=== PATIENT | female | born 1955 | race Caucasian/White ===

== ENCOUNTER 2017-10-16 09:05 | Emergency (ER) | payer OTHER ==
[~2017-10-16] VITALS: Ht 170.2 cm; Wt 113.4 kg
--- NOTE | ~2017-10-16 | EKG ---
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1955 Requested By: Suleman Pickard Order Number: [id number] MD: Neel Modi Measurements Intervals [place] Rate: 70 P: 7 MO: 211 QRS: -54 QRSD: 113 T: 4 QT: 425 QTc: 459 Interpretive Statements Sinus rhythm Prolonged MO interval Left anterior fascicular block Poor R wave progression Compared to ECG 04/22/2013 13:20:26 First degree AV block now present Electronically Signed On 10-16-2017 14:45:47 CDT by Neel Modi [email or web address] <ELECTRONICALLY SIGNED> By: Neel Modi MD, [facility] 10/16/17 1445 [id number] Neel Modi MD, [facility] /EPI
[~2017-10-16 09:05] MED LIST: CARBAMAZEPINE200 M2 PO; CLONAZEPAM 0.50.5 M1 PO; IBUPROFEN 800800 M1 PO; LAMOTRIGINE100 MG PO; MECLIZINE HCL25 M1 PO; NAPROSYN500 MG PO; ONDANSETRON HCL4 M2 PO; PAIN CREAM; PERCOCET 5-3251 EACH PO; SINGULAIR 10 MG10 M1; TEGRETOL XR200 MG PO; TRAMADOL 50 MG50 MG PO; TRIAMTERENE-HC1 EAC1 PO; ZOCOR 20 MG TAB20 M1 PO; ZYRTEC10 M5
[2017-10-16] MEDS ORDERED: SIMVASTATIN40 MG PO (09:23)
[2017-10-16] MEDS ORDERED: SYMBICORT160 MCG/4. INH (09:23)
[2017-10-16] MEDS ORDERED: VENTOLIN HFA 1818 GM INH (09:24)
[2017-10-16 09:33] LABS: URINE BLOOD 3+ (Negative); URINE CLARITY CLOUDY; URINE GLUCOSE-RANDOM* NEGATIVE (Negative); URINE KETONES NEGATIVE (Negative); URINE NITRITE-REFLEX NEGATIVE (Negative); URINE PROTEIN (DIPSTICK) 1+ (Negative); URINE UROBILINOGEN 0.2 E.U./dl (0.2-1.0)
[2017-10-16 09:36] LABS: ICTOTEST (BILI CONFIRMATORY) Negative (Negative); URINE BILIRUBIN NEGATIVE (Negative); URINE LEUKOCYTES-REFLEX 1+ (Negative)
[2017-10-16 09:39] LABS: SQUAMOUS 0-3 Few /LPF (0-3); URINE COLOR OTHER
[2017-10-16 09:40] LABS: CRYSTALS None Seen /LPF (None Seen); URINE RBC >20 Many /HPF (0-2); URINE WBC-REFLEX 0-5 Rare /HPF (0-5)
[2017-10-16 09:41] LABS: MUCUS 0-3 Light strn/LPF (None Seen)
[2017-10-16 09:42] LABS: BACTERIA-REFLEX 1-9 Few /HPF (None Seen); CASTS None Seen /LPF (None Seen); RENAL EPITHELIAL CELLS 0-3 Few /LPF (None Seen); TRANSITIONAL EPITHEL CELL 0-3 Few /LPF (None Seen)
[2017-10-16 10:58] LABS: ABSOLUTE NEUTROPHILS 4.1 thou/uL (1.4-8.2); EOSINOPHILS 2.5 % (0.0-3.0); HEMATOCRIT 47.7 % (37.0-47.0); HEMOGLOBIN 16.6 gm/dL (12.0-15.0); LYMPHOCYTES 25.7 % (24.0-44.0); MCHC 34.8 g/dL (28.0-37.0); MCV 91.8 fL (80.0-100.0); MONOCYTES 7.6 % (1.0-8.0); PLATELET COUNT 289 thou/uL (150-400); POLYS 63.2 % (36.0-66.0); WBC 6.4 thou/uL (4.0-11.0)
[2017-10-16 11:00] LABS: ANION GAP 10 mmol/L (7-16); BUN 19 mg/dL (7-18); CALCIUM 9.5 mg/dL (8.5-10.1); CHLORIDE 99 mmol/L (98-107); CO2 31 mmol/L (21-32); CREATININE 1.5 mg/dL (0.6-1.0); GLUCOSE 114 mg/dL (74-106); SODIUM 140 mmol/L (136-145)
[2017-10-16 11:05] LABS: POTASSIUM 2.9 mmol/L (3.5-5.1)
[2017-10-16 11:09] LABS: ALBUMIN 4.1 g/dL (3.4-5.0); LIPASE 75 U/L (73-393); SGOT 25 U/L (15-37); SGPT 30 U/L (30-65); TOTAL BILIRUBIN 0.7 mg/dL (<0.1-1.0); TOTAL PROTEIN 8.1 g/dL (6.4-8.2); TROPONIN-I <0.06 ng/mL (<0.06)
[2017-10-16] MEDS ORDERED: POTASSIUM20 PO (11:50)
[2017-10-16] MEDS ORDERED: FLOMAX0.4 MG PO (11:50)
[2017-10-16] MEDS ORDERED: HYDROCODONE-AP1 EAC6 PO (11:50)
[2017-10-16 12:35] VITALS: BP 127/64
[2017-10-16] MEDS ORDERED: TRAMADOL 50 MG50 MG PO (12:38)
== END 2017-10-16 12:35 | disposition home or self-care (01) ==
LOC: ER 09:05
PROVIDERS: Emergency Medicine
DX: N20.1 Calculus of ureter (principal); N18.9 Chronic kidney disease, unspecified; E87.6 Hypokalemia; F31.9 Bipolar disorder, unspecified; F41.9 Anxiety disorder, unspecified; Z87.442 Personal history of urinary calculi; Z90.710 Acquired absence of both cervix and uterus; Z85.51 Personal history of malignant neoplasm of bladder; Z85.828 Personal history of other malignant neoplasm of skin; Z88.6 Allergy status to analgesic agent; Z88.5 Allergy status to narcotic agent; Z88.8 Allergy status to other drugs, medicaments and biological substances

== ENCOUNTER 2017-10-29 09:26 | Inpatient (IN) | payer OTHER ==
[~2017-10-29] VITALS: Ht 170.2 cm; Wt 117.6 kg
--- NOTE | ~2017-10-29 | EKG ---
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1955 Requested By: Esau Smith Order Number: [id number] MD: Neel Moid Measurements Intervals [place] Rate: 64 P: -42 [place]: 162 QRS: -43 QRSD: 119 T: 16 QT: 452 QTc: 467 Interpretive Statements Sinus rhythm Nonspecific IVCD with LAD Inferior infarct, old Compared to ECG 10/16/2017 10:18:54 No significant change was found Electronically Signed On 10-29-2017 16:52:43 CDT by Neel Modi [email or web address] <ELECTRONICALLY SIGNED> By: Neel Modi MD, [facility] 10/29/17 1652 1017 [id number] Neel Modi MD, [facility] /EPI
[~2017-10-29 09:26] MED LIST changes: +FLOMAX0.4 MG PO; +HYDROCODONE-AP1 EAC6 PO; +POTASSIUM20 PO; +SIMVASTATIN40 MG PO; +SYMBICORT160 MCG/4. INH; +VENTOLIN HFA 1818 GM INH
[2017-10-29 09:29] VITALS: BP 161/92
[2017-10-29 10:23] LABS: ABSOLUTE NEUTROPHILS 4.1 thou/uL (1.4-8.2); BASOPHILS 1.1 % (0.0-2.0); EOSINOPHILS 2.7 % (0.0-3.0); HEMATOCRIT 45.7 % (37.0-47.0); HEMOGLOBIN 15.9 gm/dL (12.0-15.0); LYMPHOCYTES 25.7 % (24.0-44.0); MCH 31.9 pg (26.0-34.0); MCHC 34.8 g/dL (28.0-37.0); MCV 91.8 fL (80.0-100.0); MONOCYTES 6.3 % (1.0-8.0); PLATELET COUNT 258 thou/uL (150-400); POLYS 64.2 % (36.0-66.0); RBC 4.98 mil/uL (4.20-5.00); RDW 14.1 % (10.5-14.5); WBC 6.4 thou/uL (4.0-11.0)
[2017-10-29 10:31] LABS: ANION GAP 7 mmol/L (7-16); BUN 19 mg/dL (7-18); CALCIUM 8.9 mg/dL (8.5-10.1); CHLORIDE 101 mmol/L (98-107); CO2 32 mmol/L (21-32); CREATININE 1.1 mg/dL (0.6-1.0); GLUCOSE 124 mg/dL (74-106); SODIUM 140 mmol/L (136-145)
[2017-10-29 10:34] LABS: POTASSIUM 2.9 mmol/L (3.5-5.1)
[2017-10-29 10:40] LABS: ALBUMIN 3.7 g/dL (3.4-5.0); LIPASE 77 U/L (73-393); SGOT 23 U/L (15-37); SGPT 36 U/L (30-65); TOTAL BILIRUBIN 0.5 mg/dL (<0.1-1.0); TOTAL PROTEIN 7.3 g/dL (6.4-8.2); TROPONIN-I <0.06 ng/mL (<0.06)
[2017-10-29 12:53] LABS: URINE BILIRUBIN NEGATIVE (Negative); URINE BLOOD 2+ (Negative); URINE CLARITY CLEAR; URINE COLOR YELLOW; URINE GLUCOSE-RANDOM* NEGATIVE (Negative); URINE KETONES NEGATIVE (Negative); URINE LEUKOCYTES-REFLEX NEGATIVE (Negative); URINE NITRITE-REFLEX NEGATIVE (Negative); URINE PROTEIN (DIPSTICK) NEGATIVE (Negative); URINE SPECIFIC GRAVITY 1.015 (1.005-1.035); URINE UROBILINOGEN 0.2 E.U./dl (0.2-1.0)
[2017-10-29 13:13] VITALS: BP 168/96
[2017-10-29 13:13] LABS: BACTERIA-REFLEX 1-9 Few /HPF (None Seen); CASTS None Seen /LPF (None Seen); CRYSTALS None Seen /LPF (None Seen); SQUAMOUS 0-3 Few /LPF (0-3); URINE RBC 3-10 Few /HPF (0-2); URINE WBC-REFLEX 0-5 Rare /HPF (0-5)
[2017-10-29] MEDS ORDERED: MAXZIDE-25 MG1 EACH PO (16:15)
[2017-10-29 20:06] VITALS: BP 107/64
[2017-10-30 04:18] VITALS: BP 89/53
[2017-10-30 07:42] VITALS: BP 118/80
[2017-10-30 10:16] LABS: CREATININE 0.9 mg/dL (0.6-1.0); POTASSIUM 3.7 mmol/L (3.5-5.1)
[2017-10-30 11:52] VITALS: BP 133/71
[2017-10-30 15:18] VITALS: BP 123/72
[2017-10-30 19:45] VITALS: BP 112/66
[2017-10-31 03:42] VITALS: BP 117/72
[2017-10-31 07:20] VITALS: BP 117/71
[2017-10-31] MEDS ORDERED: ANTIVERT25 MG PO (09:16)
[2017-10-31 09:30] VITALS: BP 117/71
== END 2017-10-31 11:45 | disposition home or self-care (01) | DRG 149 ==
LOC: ER 09:26 → 2N 11:46 → EROBS 11:46 → 2N 14:15
PROVIDERS: Hospitalist; Physician Assistant
DX: H81.10 Benign paroxysmal vertigo, unspecified ear (principal); N18.9 Chronic kidney disease, unspecified; E87.6 Hypokalemia; K21.9 Gastro-esophageal reflux disease without esophagitis; M54.30 Sciatica, unspecified side; Z87.442 Personal history of urinary calculi; Z90.710 Acquired absence of both cervix and uterus; Z88.6 Allergy status to analgesic agent; Z88.8 Allergy status to other drugs, medicaments and biological substances; Z87.891 Personal history of nicotine dependence
CPT/HCPCS: 10081

== ENCOUNTER 2018-08-14 05:24 | Emergency (ER) | payer BC ==
[~2018-08-14] VITALS: Ht 170.2 cm; Wt 111.1 kg
[~2018-08-14 05:24] MED LIST changes: +ANTIVERT25 MG PO; +MAXZIDE-25 MG1 EACH PO
[2018-08-14] MEDS ORDERED: ANTIVERT25 MG PO (05:45)
[2018-08-14] MEDS ORDERED: NAPROSYN500 MG PO (08:33)
[2018-08-14] MEDS ORDERED: TRAMADOL 50 MG50 MG PO (08:33)
[2018-08-14] MEDS ORDERED: AMOXICILLIN875 MG PO (08:49)
[2018-08-14 09:44] VITALS: BP 144/86
== END 2018-08-14 09:45 | disposition home or self-care (01) ==
LOC: ER 05:24
DX: S63.502A Unspecified sprain of left wrist, initial encounter (principal); S83.91XA Sprain of unspecified site of right knee, initial encounter; S09.90XA Unspecified injury of head, initial encounter; M17.0 Bilateral primary osteoarthritis of knee; J20.9 Acute bronchitis, unspecified; I10 Essential (primary) hypertension; E78.00 Pure hypercholesterolemia, unspecified; Z87.442 Personal history of urinary calculi; Z90.710 Acquired absence of both cervix and uterus; Z85.828 Personal history of other malignant neoplasm of skin; Z87.891 Personal history of nicotine dependence; Z88.5 Allergy status to narcotic agent; Z88.6 Allergy status to analgesic agent; W18.30XA Fall on same level, unspecified, initial encounter; Y93.89 Activity, other specified; Y92.89 Other specified places as the place of occurrence of the external cause; Y99.8 Other external cause status

== ENCOUNTER → 2019-12-19 | Outpatient (CLI) | payer BC ==
[~2019-12-19] MED LIST changes: +AMOXICILLIN875 MG PO
== END ==
LOC: SJCVCIMAG 10:47
PROVIDERS: ATTEND Internal Medicine Cardiovascular Disease
DX: M79.604 Pain in right leg (principal); M79.605 Pain in left leg; M79.89 Other specified soft tissue disorders; Z87.891 Personal history of nicotine dependence